=== PATIENT | male | born 2000 | race Caucasian/White ===

== ENCOUNTER 2022-08-09 14:42 | Observation (INO) | payer OTHER ==
[2022-08-09 16:05] LABS: BASO % 0.7 % (0-2.0); EOS % 4.6 % (0-4.5); HEMATOCRIT 42.1 % (35.4-49); HEMOGLOBIN 13.9 GM/dL (11.7-16.9); LYMPH % 16.5 % (8-40); MCH 25.6 pg (25.7-33.7); MCHC 33.1 g/dl (32.0-35.9); MEAN CELL VOLUME 77.3 fl (80-96); MEAN PLT VOLUME 7.4 fl (7.5-11.1); MONO % 8.3 % (3.8-10.2); NEUT % 69.9 % (42.8-82.8); PLATELET COUNT 368 10^3/uL (134-434); RBC 5.44 M/mm3 (4.00-5.60); RDW 13.8 % (11.9-15.9); WHITE BLOOD COUNT 10.9 K/mm3 (4.0-10.0)
[2022-08-09 16:15] LABS: POTASSIUM 4.7 mmol/L (3.5-5.1)
[2022-08-09 16:17] LABS: CALCIUM 9.6 mg/dL (8.5-10.1)
[2022-08-09 16:18] LABS: ALBUMIN 3.8 g/dl (3.4-5.0); MAGNESIUM 1.9 mg/dL (1.8-2.4)
[2022-08-09 16:21] LABS: CREATININE 1.1 mg/dL (0.55-1.3)
[2022-08-09 16:23] LABS: BILIRUBIN,TOTAL 0.9 mg/dL (0.2-1); TOT PROT 7.9 g/dl (6.4-8.2)
[2022-08-09 18:23] LABS: INR 1.33 (0.83-1.09); PROTHROMBIN TIME (PATIENT) 15.4 SEC (9.7-13.0)
[2022-08-09 18:25] LABS: ACTIVATED PTT 38.4 SECONDS (25.2-36.5)
[2022-08-09] MEDS ORDERED: IBUPROFEN 600 MG TABLET (FP) PO ONE ×2 (23:02→23:03)
[2022-08-10] MEDS ORDERED: IBUPROFEN 100 MG/5 ML UNIT DOSE CUPS ONE (02:44)
[2022-08-10 06:00] LABS: EOS % 5.4 % (0-4.5); HEMATOCRIT 41.5 % (35.4-49); HEMOGLOBIN 14.1 GM/dL (11.7-16.9); LYMPH % 16.8 % (8-40); MCH 26.3 pg (25.7-33.7); MEAN CELL VOLUME 77.2 fl (80-96); MEAN PLT VOLUME 7.5 fl (7.5-11.1); MONO % 9.2 % (3.8-10.2); NEUT % 67.6 % (42.8-82.8); PLATELET COUNT 332 10^3/uL (134-434); RBC 5.38 M/mm3 (4.00-5.60); RDW 13.8 % (11.9-15.9); WHITE BLOOD COUNT 8.9 K/mm3 (4.0-10.0)
[2022-08-10 06:30] LABS: CHLORIDE 106 mmol/L (98-107); POTASSIUM 4.6 mmol/L (3.5-5.1); SODIUM 139 mmol/L (136-145)
[2022-08-10 06:31] LABS: CALCIUM 9.7 mg/dL (8.5-10.1)
[2022-08-10 06:32] LABS: ALBUMIN 3.6 g/dl (3.4-5.0); BLOOD UREA NITROGEN 13.6 mg/dL (7-18); GLUCOSE,RANDOM 104 mg/dL (74-106); MAGNESIUM 2.2 mg/dL (1.8-2.4)
[2022-08-10 06:33] LABS: ANION GAP 4 MMOL/L (8-16); CO2 30 mmol/L (21-32)
[2022-08-10 06:35] LABS: SGPT/ALT 21 U/L (13-61)
[2022-08-10 06:36] LABS: BILIRUBIN,TOTAL 0.6 mg/dL (0.2-1); CREATININE 0.9 mg/dL (0.55-1.3); SGOT/AST 15 U/L (15-37); TOT PROT 7.6 g/dl (6.4-8.2)
[2022-08-10 06:38] LABS: ALK PHOS 101 U/L (45-117)
[2022-08-10 07:50] VITALS: BMI 24.7
[2022-08-10] MEDS ORDERED: TUBERCULIN PPD 5 TU/0.1ML SYRINGE (IN PATIENT USE ONLY) ID ONE (09:58)
[2022-08-10] MEDS: ENOXAPARIN NA (PORCINE) 40 MG/0.4 ML DISP.SYRIN SQ SCH ×2 (10:17→11:18)
[2022-08-10 11:01] LABS: LDH 172 U/L (87-246)
[2022-08-10] MEDS ORDERED: IBUPROFEN 600 MG TABLET (FP) PO ONE (19:36)
[2022-08-10] MEDS ORDERED: IBUPROFEN 600 MG TABLET (FP) PO PRN (19:36)
[2022-08-11 08:28] LABS: INR 1.27 (0.83-1.09); PROTHROMBIN TIME (PATIENT) 14.7 SEC (9.7-13.0)
[2022-08-11 08:30] LABS: BASO % 0.9 % (0-2.0); EOS % 3.6 % (0-4.5); HEMATOCRIT 42.3 % (35.4-49); HEMOGLOBIN 14.4 GM/dL (11.7-16.9); MCH 26.4 pg (25.7-33.7); MEAN CELL VOLUME 77.5 fl (80-96); MEAN PLT VOLUME 7.8 fl (7.5-11.1); MONO % 9.2 % (3.8-10.2); NEUT % 68.3 % (42.8-82.8); PLATELET COUNT 329 10^3/uL (134-434); RBC 5.46 M/mm3 (4.00-5.60); RDW 13.3 % (11.9-15.9); WHITE BLOOD COUNT 9.6 K/mm3 (4.0-10.0)
[2022-08-11 08:43] LABS: POTASSIUM 4.7 mmol/L (3.5-5.1)
[2022-08-11 08:59] LABS: CALCIUM 9.5 mg/dL (8.5-10.1)
[2022-08-11 09:00] LABS: ALBUMIN 3.6 g/dl (3.4-5.0); BLOOD UREA NITROGEN 12.1 mg/dL (7-18)
[2022-08-11 09:03] LABS: CREATININE 0.9 mg/dL (0.55-1.3)
[2022-08-11 09:05] LABS: BILIRUBIN,TOTAL 0.9 mg/dL (0.2-1); TOT PROT 7.7 g/dl (6.4-8.2)
[2022-08-11] MEDS ORDERED: VALPROATE SODIUM 250 MG/5 ML UNIT DOSE CUP PO SCH (10:00)
[2022-08-11] MEDS ORDERED: ACETAMINOPHEN 325 MG TABLET (FP) PO PRN (10:24)
[2022-08-11] MEDS ORDERED: MIDAZOLAM HCL 2 MG/2 ML SINGLE DOSE VIAL ONE (15:28)
[2022-08-11] MEDS ORDERED: FENTANYL CITRATE/PF 50 MCG/ML VIAL ONE ×2 (15:28→16:10)
[2022-08-11] MEDS: FENTANYL CITRATE/PF 50 MCG/ML VIAL IVPUSH ONE ×6 (15:48→17:15)
[2022-08-11] MEDS ORDERED: MELATONIN 1 MG TABLET PO PRN (17:50)
[2022-08-11] MEDS ORDERED: LIDOCAINE 5% TOPICAL PATCH TP SCH (18:00)
[2022-08-11] MEDS: LIDOCAINE 5% TOPICAL PATCH TP SCH (19:20)
[2022-08-11] MEDS: ACETAMINOPHEN 1000 MG/100 ML BAG IVPB PRN (21:11)
[2022-08-11] MEDS ORDERED: LIDOCAINE PATCH REMOVAL MC SCH (22:00)
[2022-08-12] MEDS: ACETAMINOPHEN 1000 MG/100 ML BAG IVPB PRN (09:25)
[2022-08-12] MEDS: LIDOCAINE 5% TOPICAL PATCH TP SCH (11:15)
[2022-08-12 15:47] VITALS: BP 126/75; PULSE 93; RESP 18; TEMP 98.6
== END 2022-08-12 17:02 | disposition home or self-care (01) ==
LOC: JER 14:42 → JERBED 08-10 03:24 → J8W 08-10 06:53
PROVIDERS: ADMIT Internal Medicine; ATTEND Nurse Practitioner Family
PROC: 3E033NZ Introduction of Analgesics, Hypnotics, Sedatives into Peripheral Vein, Percutaneous Approach (ICD-10-PCS; principal; 2022-08-10)
PROC: 3E0333Z Introduction of Anti-inflammatory into Peripheral Vein, Percutaneous Approach (ICD-10-PCS; 2022-08-10)
DX: J98.59 Other diseases of mediastinum, not elsewhere classified (principal); D72.829 Elevated white blood cell count, unspecified; R91.8 Other nonspecific abnormal finding of lung field; Z29.8 Encounter for other specified prophylactic measures; R07.9 Chest pain, unspecified
CPT/HCPCS: 0241U-QW; 32408; 36415; 71046-TC-FY; 71275-TC; 74178-TC; 76870-TC; 77012-TC; 80053; 82105; 83615; 83735; 84100; 84484; 84702; 85025; 85379; 85610; 85730; 88305-TC; 88341-TC; 88342-TC; 93005; 93010; 94010; 96374; 96375; 96376; 99285-25; G0378; Q9967

== ENCOUNTER 2022-08-27 06:00 | Inpatient (IN) | payer OTHER ==
[2022-08-25 14:48] VITALS: BMI 25.2
[2022-08-27] MEDS ORDERED: KETAMINE HCL 500 MG/10 ML VIAL ONE (13:39)
[2022-08-27] MEDS ORDERED: ROCURONIUM BROMIDE 50 MG/5 ML SYRINGE ONE (13:39)
[2022-08-27] MEDS ORDERED: MIDAZOLAM HCL 2 MG/2 ML SINGLE DOSE VIAL ONE (13:39)
[2022-08-27] MEDS ORDERED: PROPOFOL 20 ML ONE (13:41)
[2022-08-27] MEDS ORDERED: ACETAMINOPHEN INJECTION 100 ML IVPB ONE (13:57)
[2022-08-27] MEDS ORDERED: BUPIVACAINE HCL/PF 0.25% (2.5MG/ML) 10 ML VIAL ONE (14:01)
[2022-08-27] MEDS ORDERED: SUCCINYLCHOLINE CHLORIDE 200 MG/10 ML SYRINGE ONE (14:13)
[2022-08-27] MEDS ORDERED: ceFAZolin SODIUM 1 GM VIAL IVPB ONE (14:30)
[2022-08-27] MEDS ORDERED: ceFAZolin SODIUM 1 GM VIAL ONE ×2 (14:48)
[2022-08-27] MEDS ORDERED: DEXAMETHASONE SOD PHOSPHATE 4 MG/1 ML VIAL ONE (14:56)
[2022-08-27] MEDS ORDERED: KETOROLAC TROMETHAMINE 30 MG/1 ML VIAL ONE (14:56)
[2022-08-27] MEDS ORDERED: ONDANSETRON 4 MG/2 ML VIAL ONE (14:56)
[2022-08-27] MEDS ORDERED: BUPIVACAINE HCL/PF 0.25% (2.5MG/ML) 10 ML VIAL IJ ONE (15:05)
[2022-08-27] MEDS ORDERED: SUGAMMADEX SODIUM 200 MG/2 ML VIAL ONE (15:35)
[2022-08-27] MEDS ORDERED: ONDANSETRON 4 MG/2 ML VIAL IVPUSH PRN (16:44)
[2022-08-27] MEDS ORDERED: HYDROmorphone *PCA* 10MG/50ML DISP.SYRIN PCA SCH (16:45)
[2022-08-27] MEDS ORDERED: LACTATED RINGERS SOLUTION 1,000 ML IV SCH (17:00)
[2022-08-27] MEDS ORDERED: HYDROmorphone *PCA* 10MG/50ML DISP.SYRIN ONE (17:02)
[2022-08-27] MEDS ORDERED: IPRATROPIUM BR 0.02% 0.5 MG/2.5 ML VIAL.NEB. NEB ONE (17:08)
[2022-08-27] MEDS: ACETAMINOPHEN 1000 MG/100 ML BAG IVPB SCH (20:13)
[2022-08-27] MEDS: LACTATED RINGERS SOLUTION 1,000 ML IV SCH (20:21)
[2022-08-27] MEDS: MUPIROCIN 2% TOPICAL OINTMENT FOR DECOLONIZATION NS SCH (21:25)
[2022-08-27] MEDS ORDERED: CHLORHEXIDINE GLUCONATE 4% CLEANSER FOR DECOLONIZATION TP SCH (22:00)
[2022-08-27] MEDS ORDERED: HEPARIN NA (PORCINE) 5,000 UNITS/ML 1ML VIAL SQ SCH (22:00)
[2022-08-27] MEDS ORDERED: GABAPENTIN 300 MG CAPSULE PO SCH (22:00)
[2022-08-27] MEDS: KETOROLAC TROMETHAMINE 15 MG/ML VIAL IVPUSH SCH (23:03)
[2022-08-28] MEDS ORDERED: ONDANSETRON 4 MG/2 ML VIAL IVPUSH ONE (00:30)
[2022-08-28] MEDS: LACTATED RINGERS SOLUTION 1,000 ML IV SCH (02:11)
[2022-08-28] MEDS: ACETAMINOPHEN 1000 MG/100 ML BAG IVPB SCH ×2 (02:11→09:09)
[2022-08-28] MEDS ORDERED: METOCLOPRAMIDE HCL INJECTION 10 MG/2 ML VIAL IVPUSH ONE (02:30)
[2022-08-28] MEDS ORDERED: LACTATED RINGERS SOLUTION 1,000 ML IV SCH (02:33)
[2022-08-28] MEDS: KETOROLAC TROMETHAMINE 15 MG/ML VIAL IVPUSH SCH ×2 (05:10→10:51)
[2022-08-28 06:39] VITALS: TEMP 98.2
[2022-08-28 07:29] LABS: HEMATOCRIT 39.5 % (35.4-49); HEMOGLOBIN 13.2 GM/dL (11.7-16.9); MCH 25.7 pg (25.7-33.7); MCHC 33.4 g/dl (32.0-35.9); MEAN CELL VOLUME 76.8 fl (80-96); MEAN PLT VOLUME 7.5 fl (7.5-11.1); PLATELET COUNT 450 10^3/uL (134-434); RBC 5.14 M/mm3 (4.00-5.60); RDW 13.4 % (11.9-15.9)
[2022-08-28 07:41] LABS: POTASSIUM 4.8 mmol/L (3.5-5.1)
[2022-08-28 07:44] LABS: CALCIUM 9.6 mg/dL (8.5-10.1)
[2022-08-28 07:45] LABS: ALBUMIN 3.2 g/dl (3.4-5.0); BLOOD UREA NITROGEN 7.7 mg/dL (7-18)
[2022-08-28 07:47] LABS: CREATININE 0.7 mg/dL (0.55-1.3)
[2022-08-28 07:49] LABS: BILIRUBIN,TOTAL 0.8 mg/dL (0.2-1); TOT PROT 7.2 g/dl (6.4-8.2)
[2022-08-28] MEDS ORDERED: oxyCODONE HCL 5 MG TABLET PO PRN ×2 (08:56)
[2022-08-28] MEDS: MUPIROCIN 2% TOPICAL OINTMENT FOR DECOLONIZATION NS SCH (09:10)
[2022-08-28] MEDS ORDERED: ENOXAPARIN NA (PORCINE) 40 MG/0.4 ML DISP.SYRIN SQ SCH (10:00)
[2022-08-28] MEDS ORDERED: HEPARIN NA (PORCINE) 5,000 UNITS/ML 1ML VIAL SQ SCH (10:00)
[2022-08-28 15:13] VITALS: BP 137/62; PULSE 82; RESP 27
== END 2022-08-28 15:05 | disposition home or self-care (01) | DRG 680 ==
LOC: J2C 06:00 → JICU 19:08
PROVIDERS: ADMIT Student in an Organized Health Care Education/Training Program; ATTEND Student in an Organized Health Care Education/Training Program
PROC: 0WBC4ZX Excision of Mediastinum, Percutaneous Endoscopic Approach, Diagnostic (ICD-10-PCS; 2022-08-27)
PROC: 0BBC4ZZ Excision of Right Upper Lung Lobe, Percutaneous Endoscopic Approach (ICD-10-PCS; principal; 2022-08-27 14:00)
DX: C81.90 Hodgkin lymphoma, unspecified, unspecified site (principal); J98.59 Other diseases of mediastinum, not elsewhere classified; R91.8 Other nonspecific abnormal finding of lung field; D72.829 Elevated white blood cell count, unspecified
CPT/HCPCS: 36415; 71045-TC-FY; 80053; 85027; 86850; 86900; 86901; 87070; 87075; 87102; 87116; 87205; 87206; 87210; 88307-TC; 88331-TC; 93005; 93010; 94760; C9803-CS; U0003; U0005

== ENCOUNTER 2022-09-10 03:56 | Day surgery (SDC) | payer OTHER ==
[2022-09-08 08:55] VITALS: BMI 24.5
[2022-09-10] MEDS ORDERED: LIDOCAINE HCL 1%, 10 MG/ML (10ML VIAL) MDV ONE ×2 (12:16→13:53)
[2022-09-10] MEDS ORDERED: HEPARIN NA (PORCINE) 5,000 UNITS/ML 1ML VIAL ONE (12:17)
[2022-09-10] MEDS ORDERED: MIDAZOLAM HCL 2 MG/2 ML SINGLE DOSE VIAL ONE (12:49)
[2022-09-10] MEDS ORDERED: PROPOFOL 20 ML ONE ×3 (12:53→14:16)
[2022-09-10] MEDS ORDERED: ceFAZolin SODIUM 1 GM VIAL IVPB ONE (13:33)
[2022-09-10] MEDS ORDERED: ceFAZolin SODIUM 1 GM VIAL ONE (13:36)
[2022-09-10] MEDS ORDERED: DEXAMETHASONE SOD PHOSPHATE 4 MG/1 ML VIAL ONE (13:36)
[2022-09-10] MEDS ORDERED: ONDANSETRON 4 MG/2 ML VIAL ONE (13:36)
[2022-09-10] MEDS ORDERED: LIDOCAINE HCL 1%, 10 MG/ML (20ML VIAL) INF ONE ×2 (13:50)
[2022-09-10] MEDS ORDERED: BUPIVACAINE HCL/PF 0.25% (2.5MG/ML) 10 ML VIAL ONE (13:53)
[2022-09-10] MEDS ORDERED: ONDANSETRON 4 MG/2 ML VIAL IVPUSH PRN (14:41)
[2022-09-10] MEDS ORDERED: PROMETHAZINE HCL 25 MG/1 ML VIAL IVPB PRN (14:41)
[2022-09-10] MEDS ORDERED: oxyCODONE HCL 5 MG TABLET PO PRN (14:41)
[2022-09-10] MEDS ORDERED: LACTATED RINGERS SOLUTION 1,000 ML IV SCH (14:45)
[2022-09-10 17:19] VITALS: RESP 16
[2022-09-10 17:24] VITALS: BP 120/70; PULSE 70; TEMP 98
== END 2022-09-10 16:30 | disposition home or self-care (01) ==
LOC: JASU-SURG 03:56
PROVIDERS: ATTEND Student in an Organized Health Care Education/Training Program
PROC: 05H533Z Insertion of Infusion Device into Right Subclavian Vein, Percutaneous Approach (ICD-10-PCS; 2022-09-10)
PROC: B516ZZA Fluoroscopy of Right Subclavian Vein, Guidance (ICD-10-PCS; 2022-09-10)
PROC: 0JH60WZ Insertion of Totally Implantable Vascular Access Device into Chest Subcutaneous Tissue and Fascia, Open Approach (ICD-10-PCS; principal; 2022-09-10 13:00)
DX: C81.90 Hodgkin lymphoma, unspecified, unspecified site (principal)
CPT/HCPCS: 36561; C1788; 71045-TC-FY; 76000-TC-FY; 94760; J1644

== ENCOUNTER 2022-09-16 08:01 | Day surgery (SDC) | payer OTHER ==
[2022-09-16 09:04] LABS: BASO % 0.6 % (0-2.0); EOS % 3.3 % (0-4.5); HEMATOCRIT 40.8 % (35.4-49); HEMOGLOBIN 12.8 GM/dL (11.7-16.9); LYMPH % 13.5 % (8-40); MCH 24.5 pg (25.7-33.7); MCHC 31.3 g/dl (32.0-35.9); MEAN CELL VOLUME 78.3 fl (80-96); MEAN PLT VOLUME 7.8 fl (7.5-11.1); MONO % 8.5 % (3.8-10.2); NEUT % 74.1 % (42.8-82.8); PLATELET COUNT 400 10^3/uL (134-434); RDW 13.8 % (11.9-15.9); WHITE BLOOD COUNT 13.9 K/mm3 (4.0-10.0)
[2022-09-16 09:21] LABS: POTASSIUM 4.7 mmol/L (3.5-5.1)
[2022-09-16 09:22] LABS: CALCIUM 9.6 mg/dL (8.5-10.1)
[2022-09-16 09:23] LABS: ALBUMIN 3.5 g/dl (3.4-5.0); BLOOD UREA NITROGEN 11.9 mg/dL (7-18)
[2022-09-16 09:26] LABS: BILIRUBIN,DIRECT 0.2 mg/dL (0.0-0.2); CREATININE 0.8 mg/dL (0.55-1.3)
[2022-09-16 09:27] LABS: TOT PROT 7.5 g/dl (6.4-8.2)
[2022-09-16 09:28] LABS: BILIRUBIN,TOTAL 0.8 mg/dL (0.2-1)
[2022-09-16] MEDS ORDERED: SODIUM CHLORIDE 250 ML IV ONE (09:30)
[2022-09-16 09:42] LABS: ERYTHROCYTE SEDIMENTATION RATE 51 mm/hr (0-10)
[2022-09-16] MEDS ORDERED: FOSAPREPITANT DIMEGLUMINE 150 MG in SODIUM CHLORIDE 145 ML IVPB ONE (10:00)
[2022-09-16] MEDS ORDERED: PALONOSETRON HCL 0.25 MG/5 ML VIAL IVPUSH ONE (10:00)
[2022-09-16] MEDS ORDERED: DEXAMETHASONE SODIUM PHOSPHATE 10 MG in SODIUM CHLORIDE 50 ML IVPB ONE (10:00)
[2022-09-16] MEDS ORDERED: ACETAMINOPHEN 325 MG TABLET (FP) PO ONE (10:00)
[2022-09-16] MEDS ORDERED: diphenhydrAMINE HCL 25 MG CAPSULE (FP) PO ONE (10:00)
[2022-09-16] MEDS ORDERED: DOXOrubicin HCL 50 MG/25 ML VIAL IV ONE (10:30)
[2022-09-16] MEDS ORDERED: SODIUM CHLORIDE 500 ML IV ONE (10:30)
[2022-09-16] MEDS ORDERED: BLEOMYCIN SULFATE 15 UNIT VIAL ID ONE (10:30)
[2022-09-16] MEDS ORDERED: BLEOMYCIN SULFATE IVPB ONE (10:45)
[2022-09-16] MEDS ORDERED: SODIUM CHLORIDE IVPB ONE ×2 (10:45→11:00)
[2022-09-16] MEDS ORDERED: VINBLASTINE SULFATE IVPB ONE (11:00)
[2022-09-16] MEDS ORDERED: DEXTROSE 5% IVPB ONE (11:15)
[2022-09-16] MEDS ORDERED: WATER IVPB ONE (11:15)
[2022-09-16] MEDS ORDERED: DACARBAZINE IVPB ONE (11:15)
[2022-09-16 17:52] VITALS: BP 129/61; PULSE 85; RESP 18; TEMP 98.7
[2022-09-16] MEDS ORDERED: PORTA CATH FLUSH 10 ML IVPUSH PRN (17:52)
== END 2022-09-16 15:35 | disposition home or self-care (01) ==
LOC: JONCCHEMO 08:01 → J7W 08:01 → JONCCHEMO 15:35
PROVIDERS: ATTEND Internal Medicine Hematology & Oncology
DX: Z51.11 Encounter for antineoplastic chemotherapy (principal); C81.90 Hodgkin lymphoma, unspecified, unspecified site
CPT/HCPCS: 36415; 80048; 80076; 83615; 84550; 85025; 85651; 96367; 96375; 96411; 96413; J1453; J2469; J9040; J9130

== ENCOUNTER 2022-09-30 07:44 | Day surgery (SDC) | payer OTHER ==
[2022-09-30 08:08] LABS: BASO % 0.8 % (0-2.0); EOS % 2.8 % (0-4.5); HEMATOCRIT 40.9 % (35.4-49); HEMOGLOBIN 13.1 GM/dL (11.7-16.9); LYMPH % 49.9 % (8-40); MCH 25.5 pg (25.7-33.7); MCHC 31.9 g/dl (32.0-35.9); MEAN CELL VOLUME 79.8 fl (80-96); MEAN PLT VOLUME 8.2 fl (7.5-11.1); MONO % 13.9 % (3.8-10.2); NEUT % 32.6 % (42.8-82.8); PLATELET COUNT 289 10^3/uL (134-434); RBC 5.13 M/mm3 (4.00-5.60); RDW 15.3 % (11.9-15.9); WHITE BLOOD COUNT 4.2 K/mm3 (4.0-10.0)
[2022-09-30 08:25] LABS: POTASSIUM 4.2 mmol/L (3.5-5.1)
[2022-09-30 08:27] LABS: BLOOD UREA NITROGEN 9.7 mg/dL (7-18); CALCIUM 9.5 mg/dL (8.5-10.1)
[2022-09-30 08:28] LABS: ALBUMIN 3.7 g/dl (3.4-5.0)
[2022-09-30 08:30] LABS: CREATININE 0.9 mg/dL (0.55-1.3); URIC ACID 3.7 mg/dL (2.6-7.2)
[2022-09-30 08:32] LABS: BILIRUBIN,DIRECT 0.1 mg/dL (0.0-0.2); BILIRUBIN,TOTAL 0.6 mg/dL (0.2-1); TOT PROT 7.2 g/dl (6.4-8.2)
[2022-09-30] MEDS ORDERED: SODIUM CHLORIDE 250 ML IV ONE (09:30)
[2022-09-30] MEDS ORDERED: FOSAPREPITANT DIMEGLUMINE 150 MG in SODIUM CHLORIDE 145 ML IVPB ONE (10:00)
[2022-09-30] MEDS ORDERED: PALONOSETRON HCL 0.25 MG/5 ML VIAL IVPUSH ONE (10:00)
[2022-09-30] MEDS ORDERED: ACETAMINOPHEN 325 MG TABLET (FP) PO ONE (10:00)
[2022-09-30] MEDS ORDERED: DEXAMETHASONE SODIUM PHOSPHATE 10 MG in SODIUM CHLORIDE 50 ML IVPB ONE (10:00)
[2022-09-30] MEDS ORDERED: diphenhydrAMINE HCL 25 MG CAPSULE (FP) PO ONE (10:00)
[2022-09-30] MEDS ORDERED: DOXOrubicin HCL 50 MG/25 ML VIAL IV ONE (10:30)
[2022-09-30] MEDS ORDERED: BLEOMYCIN SULFATE IVPB ONE (10:45)
[2022-09-30] MEDS ORDERED: SODIUM CHLORIDE IVPB ONE ×2 (10:45→11:00)
[2022-09-30] MEDS ORDERED: VINBLASTINE SULFATE IVPB ONE (11:00)
[2022-09-30] MEDS ORDERED: DACARBAZINE IVPB ONE (11:15)
[2022-09-30] MEDS ORDERED: WATER IVPB ONE (11:15)
[2022-09-30] MEDS ORDERED: DEXTROSE 5% IVPB ONE (11:15)
[2022-09-30] MEDS ORDERED: PORTA CATH FLUSH 10 ML IVPUSH PRN (17:04)
[2022-09-30 17:05] VITALS: BP 134/73; PULSE 68; RESP 18; TEMP 98.4
== END 2022-09-30 13:45 | disposition home or self-care (01) ==
LOC: JONCCHEMO 07:44 → J7W 07:45 → JONCCHEMO 13:45
PROVIDERS: ATTEND Internal Medicine Hematology & Oncology
PROC: 3E04305 Introduction of Other Antineoplastic into Central Vein, Percutaneous Approach (ICD-10-PCS; principal; 2022-09-30)
PROC: 3E0437Z Introduction of Electrolytic and Water Balance Substance into Central Vein, Percutaneous Approach (ICD-10-PCS; 2022-09-30)
PROC: 3E043GC Introduction of Other Therapeutic Substance into Central Vein, Percutaneous Approach (ICD-10-PCS; 2022-09-30)
DX: Z51.11 Encounter for antineoplastic chemotherapy (principal); C81.90 Hodgkin lymphoma, unspecified, unspecified site
CPT/HCPCS: 36415; 80048; 80076; 83615; 84550; 85025; 96367; 96375; 96411; 96413; J1453; J2469; J9040; J9130

== ENCOUNTER 2022-10-14 07:45 | Day surgery (SDC) | payer OTHER ==
[2022-10-14 08:32] LABS: BASO % 1.5 % (0-2.0); EOS % 2.1 % (0-4.5); HEMATOCRIT 41.3 % (35.4-49); HEMOGLOBIN 13.4 GM/dL (11.7-16.9); LYMPH % 43.4 % (8-40); MCH 25.5 pg (25.7-33.7); MCHC 32.4 g/dl (32.0-35.9); MEAN CELL VOLUME 78.8 fl (80-96); MEAN PLT VOLUME 7.9 fl (7.5-11.1); MONO % 14.1 % (3.8-10.2); NEUT % 38.9 % (42.8-82.8); PLATELET COUNT 253 10^3/uL (134-434); RBC 5.24 M/mm3 (4.00-5.60); RDW 16.9 % (11.9-15.9); WHITE BLOOD COUNT 3.9 K/mm3 (4.0-10.0)
[2022-10-14 08:59] LABS: POTASSIUM 4.2 mmol/L (3.5-5.1)
[2022-10-14] MEDS ORDERED: SODIUM CHLORIDE 250 ML IV ONE (09:00)
[2022-10-14 09:01] LABS: BLOOD UREA NITROGEN 10.3 mg/dL (7-18); CALCIUM 9.4 mg/dL (8.5-10.1)
[2022-10-14 09:02] LABS: ALBUMIN 3.9 g/dl (3.4-5.0)
[2022-10-14 09:04] LABS: BILIRUBIN,DIRECT 0.2 mg/dL (0.0-0.2); CREATININE 0.9 mg/dL (0.55-1.3)
[2022-10-14 09:05] LABS: URIC ACID 4.9 mg/dL (2.6-7.2)
[2022-10-14 09:06] LABS: BILIRUBIN,TOTAL 0.5 mg/dL (0.2-1); TOT PROT 7.2 g/dl (6.4-8.2)
[2022-10-14] MEDS ORDERED: FOSAPREPITANT DIMEGLUMINE 150 MG in SODIUM CHLORIDE 145 ML IVPB ONE (09:30)
[2022-10-14] MEDS ORDERED: PALONOSETRON HCL 0.25 MG/5 ML VIAL IVPUSH ONE (09:30)
[2022-10-14] MEDS ORDERED: diphenhydrAMINE HCL 25 MG CAPSULE (FP) PO ONE (09:30)
[2022-10-14] MEDS ORDERED: DEXAMETHASONE SODIUM PHOSPHATE 10 MG in SODIUM CHLORIDE 50 ML IVPB ONE (09:30)
[2022-10-14] MEDS ORDERED: ACETAMINOPHEN 325 MG TABLET (FP) PO ONE (09:30)
[2022-10-14 09:39] LABS: ERYTHROCYTE SEDIMENTATION RATE 2 mm/hr (0-10)
[2022-10-14] MEDS ORDERED: DOXOrubicin HCL 50 MG/25 ML VIAL IV ONE (10:00)
[2022-10-14] MEDS ORDERED: SODIUM CHLORIDE IVPB ONE ×2 (10:15→10:45)
[2022-10-14] MEDS ORDERED: BLEOMYCIN SULFATE IVPB ONE (10:15)
[2022-10-14] MEDS ORDERED: VINBLASTINE SULFATE IVPB ONE (10:45)
[2022-10-14] MEDS ORDERED: DACARBAZINE IVPB ONE (11:00)
[2022-10-14] MEDS ORDERED: WATER IVPB ONE (11:00)
[2022-10-14] MEDS ORDERED: DEXTROSE 5% IVPB ONE (11:00)
[2022-10-14 16:25] VITALS: BP 134/77; PULSE 68; RESP 20; TEMP 98
[2022-10-14] MEDS ORDERED: PORTA CATH FLUSH 10 ML IVPUSH PRN (16:25)
== END 2022-10-14 13:50 | disposition home or self-care (01) ==
LOC: JONCCHEMO 07:45 → J7W 07:45 → JONCCHEMO 13:50
PROVIDERS: ATTEND Internal Medicine Hematology & Oncology
PROC: 3E04305 Introduction of Other Antineoplastic into Central Vein, Percutaneous Approach (ICD-10-PCS; principal; 2022-10-14)
PROC: 3E0437Z Introduction of Electrolytic and Water Balance Substance into Central Vein, Percutaneous Approach (ICD-10-PCS; 2022-10-14)
PROC: 3E043GC Introduction of Other Therapeutic Substance into Central Vein, Percutaneous Approach (ICD-10-PCS; 2022-10-14)
DX: Z51.11 Encounter for antineoplastic chemotherapy (principal); C81.90 Hodgkin lymphoma, unspecified, unspecified site
CPT/HCPCS: 36415; 80048; 80076; 83615; 84550; 85025; 85651; 96367; 96375; 96411; 96413; J1453; J2469; J9040; J9130

== ENCOUNTER 2022-10-28 08:05 | Day surgery (SDC) | payer OTHER ==
[2022-10-28 08:39] LABS: BASO % 0.8 % (0-2.0); EOS % 2.1 % (0-4.5); HEMATOCRIT 41.9 % (35.4-49); LYMPH % 37.9 % (8-40); MCH 26.5 pg (25.7-33.7); MCHC 33.3 g/dl (32.0-35.9); MEAN CELL VOLUME 79.7 fl (80-96); MEAN PLT VOLUME 7.5 fl (7.5-11.1); MONO % 13.4 % (3.8-10.2); NEUT % 45.8 % (42.8-82.8); PLATELET COUNT 247 10^3/uL (134-434); RBC 5.26 M/mm3 (4.00-5.60); RDW 17.9 % (11.9-15.9); WHITE BLOOD COUNT 4.2 K/mm3 (4.0-10.0)
[2022-10-28 08:59] LABS: POTASSIUM 4.4 mmol/L (3.5-5.1)
[2022-10-28] MEDS ORDERED: SODIUM CHLORIDE 250 ML IV ONE (09:00)
[2022-10-28 09:01] LABS: ALBUMIN 3.8 g/dl (3.4-5.0); BLOOD UREA NITROGEN 13.2 mg/dL (7-18); CALCIUM 8.7 mg/dL (8.5-10.1)
[2022-10-28 09:04] LABS: BILIRUBIN,DIRECT 0.1 mg/dL (0.0-0.2); URIC ACID 3.7 mg/dL (2.6-7.2)
[2022-10-28 09:05] LABS: CREATININE 0.8 mg/dL (0.55-1.3)
[2022-10-28 09:06] LABS: BILIRUBIN,TOTAL 0.1 mg/dL (0.2-1)
[2022-10-28] MEDS ORDERED: PALONOSETRON HCL 0.25 MG/5 ML VIAL IVPUSH ONE (09:30)
[2022-10-28] MEDS ORDERED: ACETAMINOPHEN 325 MG TABLET (FP) PO ONE (09:30)
[2022-10-28] MEDS ORDERED: FOSAPREPITANT DIMEGLUMINE 150 MG in SODIUM CHLORIDE 145 ML IVPB ONE (09:30)
[2022-10-28] MEDS ORDERED: DEXAMETHASONE SODIUM PHOSPHATE 10 MG in SODIUM CHLORIDE 50 ML IVPB ONE (09:30)
[2022-10-28] MEDS ORDERED: diphenhydrAMINE HCL 25 MG CAPSULE (FP) PO ONE (09:30)
[2022-10-28] MEDS ORDERED: DOXOrubicin HCL 50 MG/25 ML VIAL IV ONE (10:00)
[2022-10-28] MEDS ORDERED: SODIUM CHLORIDE IVPB ONE ×2 (10:15→10:45)
[2022-10-28] MEDS ORDERED: BLEOMYCIN SULFATE IVPB ONE (10:15)
[2022-10-28] MEDS ORDERED: VINBLASTINE SULFATE IVPB ONE (10:45)
[2022-10-28] MEDS ORDERED: WATER IVPB ONE (10:50)
[2022-10-28] MEDS ORDERED: DACARBAZINE IVPB ONE (10:50)
[2022-10-28] MEDS ORDERED: DEXTROSE 5% IVPB ONE (10:50)
[2022-10-28 15:06] VITALS: BP 126/74; PULSE 69; RESP 20; TEMP 98.1
[2022-10-28] MEDS ORDERED: PORTA CATH FLUSH 10 ML IVPUSH PRN (15:06)
== END 2022-10-28 13:00 | disposition home or self-care (01) ==
LOC: JONCCHEMO 08:05 → J7W 08:29 → JONCCHEMO 13:00
PROVIDERS: ATTEND Internal Medicine Hematology & Oncology
DX: Z51.11 Encounter for antineoplastic chemotherapy (principal); C81.90 Hodgkin lymphoma, unspecified, unspecified site
CPT/HCPCS: 36415; 80048; 80076; 83615; 84550; 85025; 96367; 96375; 96411; 96413; 96417; J1453; J2469; J9040; J9130

== ENCOUNTER 2022-11-11 08:02 | Day surgery (SDC) | payer OTHER ==
[2022-11-11 08:34] LABS: BASO % 1.1 % (0-2.0); EOS % 3.3 % (0-4.5); HEMATOCRIT 44.6 % (35.4-49); HEMOGLOBIN 14.5 GM/dL (11.7-16.9); LYMPH % 39.2 % (8-40); MCH 26.4 pg (25.7-33.7); MCHC 32.5 g/dl (32.0-35.9); MEAN CELL VOLUME 81.3 fl (80-96); MEAN PLT VOLUME 8.1 fl (7.5-11.1); MONO % 13.6 % (3.8-10.2); NEUT % 42.8 % (42.8-82.8); PLATELET COUNT 263 10^3/uL (134-434); RBC 5.48 M/mm3 (4.00-5.60); RDW 17.5 % (11.9-15.9); WHITE BLOOD COUNT 5.2 K/mm3 (4.0-10.0)
[2022-11-11] MEDS ORDERED: SODIUM CHLORIDE 250 ML IV ONE (09:30)
[2022-11-11 09:44] LABS: ERYTHROCYTE SEDIMENTATION RATE 5 mm/hr (0-10)
[2022-11-11] MEDS ORDERED: PALONOSETRON HCL 0.25 MG/5 ML VIAL IVPUSH ONE (10:00)
[2022-11-11] MEDS ORDERED: FOSAPREPITANT DIMEGLUMINE 150 MG in SODIUM CHLORIDE 145 ML IVPB ONE (10:00)
[2022-11-11] MEDS ORDERED: DEXAMETHASONE SODIUM PHOSPHATE 10 MG in SODIUM CHLORIDE 50 ML IVPB ONE (10:00)
[2022-11-11] MEDS ORDERED: ACETAMINOPHEN 325 MG TABLET (FP) PO ONE (10:00)
[2022-11-11] MEDS ORDERED: diphenhydrAMINE HCL 25 MG CAPSULE (FP) PO ONE (10:00)
[2022-11-11 10:15] LABS: ALBUMIN 3.8 g/dl (3.4-5.0); CALCIUM 9.4 mg/dL (8.5-10.1)
[2022-11-11 10:16] LABS: BLOOD UREA NITROGEN 7.7 mg/dL (7-18)
[2022-11-11 10:18] LABS: BILIRUBIN,DIRECT 0.1 mg/dL (0.0-0.2); CREATININE 0.9 mg/dL (0.55-1.3); URIC ACID 3.8 mg/dL (2.6-7.2)
[2022-11-11 10:20] LABS: BILIRUBIN,TOTAL 0.4 mg/dL (0.2-1); TOT PROT 7.2 g/dl (6.4-8.2)
[2022-11-11] MEDS ORDERED: DOXOrubicin HCL 50 MG/25 ML VIAL IV ONE (10:30)
[2022-11-11] MEDS ORDERED: SODIUM CHLORIDE IVPB ONE ×2 (11:00→11:15)
[2022-11-11] MEDS ORDERED: BLEOMYCIN SULFATE IVPB ONE (11:00)
[2022-11-11] MEDS ORDERED: VINBLASTINE SULFATE IVPB ONE (11:15)
[2022-11-11] MEDS ORDERED: DEXTROSE 5% IVPB ONE (11:30)
[2022-11-11] MEDS ORDERED: WATER IVPB ONE (11:30)
[2022-11-11] MEDS ORDERED: DACARBAZINE IVPB ONE (11:30)
[2022-11-11 15:08] VITALS: BP 120/72; PULSE 75; RESP 18; TEMP 98
[2022-11-11] MEDS ORDERED: PORTA CATH FLUSH 10 ML IVPUSH PRN (15:08)
== END 2022-11-11 13:20 | disposition home or self-care (01) ==
LOC: JONCCHEMO 08:02 → J7W 08:03 → JONCCHEMO 13:20
PROVIDERS: ATTEND Internal Medicine Hematology & Oncology
DX: Z51.11 Encounter for antineoplastic chemotherapy (principal); C81.90 Hodgkin lymphoma, unspecified, unspecified site
CPT/HCPCS: 36415; 80048; 80076; 83615; 84550; 85025; 85651; 96367; 96375; 96411; 96413; J1453; J2469; J9040; J9130

== ENCOUNTER 2022-11-25 08:15 | Day surgery (SDC) | payer OTHER ==
[2022-11-25 08:46] LABS: BASO % 0.8 % (0-2.0); EOS % 1.8 % (0-4.5); HEMATOCRIT 43.3 % (35.4-49); HEMOGLOBIN 14.6 GM/dL (11.7-16.9); LYMPH % 42.1 % (8-40); MCH 27.3 pg (25.7-33.7); MCHC 33.8 g/dl (32.0-35.9); MEAN CELL VOLUME 80.6 fl (80-96); MEAN PLT VOLUME 7.9 fl (7.5-11.1); MONO % 11.2 % (3.8-10.2); NEUT % 44.1 % (42.8-82.8); PLATELET COUNT 255 10^3/uL (134-434); RBC 5.37 M/mm3 (4.00-5.60); RDW 17.1 % (11.9-15.9); WHITE BLOOD COUNT 4.7 K/mm3 (4.0-10.0)
[2022-11-25 09:30] LABS: POTASSIUM 4.1 mmol/L (3.5-5.1)
[2022-11-25] MEDS ORDERED: SODIUM CHLORIDE 250 ML IV ONE (09:30)
[2022-11-25 09:43] LABS: ALBUMIN 3.8 g/dl (3.4-5.0)
[2022-11-25] MEDS ORDERED: DEXAMETHASONE SODIUM PHOSPHATE 10 MG in SODIUM CHLORIDE 50 ML IVPB ONE (10:00)
[2022-11-25] MEDS ORDERED: diphenhydrAMINE HCL 25 MG CAPSULE (FP) PO ONE (10:00)
[2022-11-25] MEDS ORDERED: FOSAPREPITANT DIMEGLUMINE 150 MG in SODIUM CHLORIDE 145 ML IVPB ONE (10:00)
[2022-11-25] MEDS ORDERED: ACETAMINOPHEN 325 MG TABLET (FP) PO ONE (10:00)
[2022-11-25] MEDS ORDERED: PALONOSETRON HCL 0.25 MG/5 ML VIAL IVPUSH ONE (10:00)
[2022-11-25 10:07] LABS: BILIRUBIN,DIRECT 0.1 mg/dL (0.0-0.2)
[2022-11-25 10:10] LABS: BILIRUBIN,TOTAL 0.6 mg/dL (0.2-1); BLOOD UREA NITROGEN 14.1 mg/dL (7-18); CREATININE 1.1 mg/dL (0.55-1.3)
[2022-11-25] MEDS ORDERED: DOXOrubicin HCL 50 MG/25 ML VIAL IV ONE (10:30)
[2022-11-25] MEDS ORDERED: BLEOMYCIN SULFATE IVPB ONE (10:45)
[2022-11-25] MEDS ORDERED: SODIUM CHLORIDE IVPB ONE ×2 (10:45→11:00)
[2022-11-25] MEDS ORDERED: VINBLASTINE SULFATE IVPB ONE (11:00)
[2022-11-25] MEDS ORDERED: WATER IVPB ONE (11:15)
[2022-11-25] MEDS ORDERED: DACARBAZINE IVPB ONE (11:15)
[2022-11-25] MEDS ORDERED: DEXTROSE 5% IVPB ONE (11:15)
[2022-11-25 14:32] VITALS: RESP 18; TEMP 97.6
[2022-11-25 14:52] VITALS: BP 125/83; PULSE 87
[2022-11-25] MEDS ORDERED: PORTA CATH FLUSH 10 ML IVPUSH PRN (14:52)
== END 2022-11-25 13:45 | disposition home or self-care (01) ==
LOC: JONCCHEMO 08:15 → J7W 08:16 → JONCCHEMO 13:45
PROVIDERS: ATTEND Internal Medicine Hematology & Oncology
DX: Z51.11 Encounter for antineoplastic chemotherapy (principal); C81.90 Hodgkin lymphoma, unspecified, unspecified site
CPT/HCPCS: 36415; 80048; 80076; 83615; 84550; 85025; 96367; 96375; 96411; 96413; J1453; J2469; J9040; J9130

== ENCOUNTER 2022-12-08 08:23 | Day surgery (SDC) | payer OTHER ==
[2022-12-08] MEDS ORDERED: SODIUM CHLORIDE 250 ML IV ONE (09:00)
[2022-12-08 09:13] LABS: BASO % 0.7 % (0-2.0); EOS % 1.8 % (0-4.5); HEMATOCRIT 43.2 % (35.4-49); LYMPH % 32.4 % (8-40); MCH 26.8 pg (25.7-33.7); MCHC 32.3 g/dl (32.0-35.9); MEAN CELL VOLUME 82.9 fl (80-96); MEAN PLT VOLUME 8.2 fl (7.5-11.1); MONO % 13.6 % (3.8-10.2); NEUT % 51.5 % (42.8-82.8); PLATELET COUNT 241 10^3/uL (134-434); RBC 5.21 M/mm3 (4.00-5.60); RDW 16.7 % (11.9-15.9); WHITE BLOOD COUNT 4.6 K/mm3 (4.0-10.0)
[2022-12-08] MEDS ORDERED: DEXAMETHASONE SODIUM PHOSPHATE 10 MG in SODIUM CHLORIDE 50 ML IVPB ONE (09:30)
[2022-12-08] MEDS ORDERED: PALONOSETRON HCL 0.25 MG/5 ML VIAL IVPUSH ONE (09:30)
[2022-12-08] MEDS ORDERED: FOSAPREPITANT DIMEGLUMINE 150 MG in SODIUM CHLORIDE 145 ML IVPB ONE (09:30)
[2022-12-08] MEDS ORDERED: ACETAMINOPHEN 325 MG TABLET (FP) PO ONE (09:30)
[2022-12-08] MEDS ORDERED: diphenhydrAMINE HCL 25 MG CAPSULE (FP) PO ONE (09:30)
[2022-12-08 09:45] LABS: CALCIUM 9.1 mg/dL (8.5-10.1)
[2022-12-08 09:46] LABS: ALBUMIN 3.8 g/dl (3.4-5.0); BLOOD UREA NITROGEN 10.6 mg/dL (7-18)
[2022-12-08 09:48] LABS: BILIRUBIN,DIRECT 0.1 mg/dL (0.0-0.2)
[2022-12-08 09:49] LABS: CREATININE 0.9 mg/dL (0.55-1.3); URIC ACID 5.2 mg/dL (2.6-7.2)
[2022-12-08 09:51] LABS: BILIRUBIN,TOTAL 0.5 mg/dL (0.2-1)
[2022-12-08] MEDS ORDERED: DOXOrubicin HCL 50 MG/25 ML VIAL IV ONE (10:00)
[2022-12-08 10:10] LABS: ERYTHROCYTE SEDIMENTATION RATE 5 mm/hr (0-10)
[2022-12-08] MEDS ORDERED: BLEOMYCIN SULFATE IVPB ONE (10:15)
[2022-12-08] MEDS ORDERED: SODIUM CHLORIDE IVPB ONE ×2 (10:15→10:45)
[2022-12-08] MEDS ORDERED: VINBLASTINE SULFATE IVPB ONE (10:45)
[2022-12-08] MEDS ORDERED: WATER IVPB ONE (11:00)
[2022-12-08] MEDS ORDERED: DACARBAZINE IVPB ONE (11:00)
[2022-12-08] MEDS ORDERED: DEXTROSE 5% IVPB ONE (11:00)
[2022-12-08 16:55] VITALS: BP 113/74; PULSE 68; RESP 20; TEMP 98.3
[2022-12-08] MEDS ORDERED: PORTA CATH FLUSH 10 ML IVPUSH PRN (16:57)
== END 2022-12-08 14:20 | disposition home or self-care (01) ==
LOC: JONCCHEMO 08:23 → J7W 08:41 → JONCCHEMO 14:05
PROVIDERS: ATTEND Internal Medicine Hematology & Oncology
PROC: 3E04305 Introduction of Other Antineoplastic into Central Vein, Percutaneous Approach (ICD-10-PCS; principal; 2022-12-08)
PROC: 3E04305 Introduction of Other Antineoplastic into Central Vein, Percutaneous Approach (ICD-10-PCS; 2022-12-08)
PROC: 3E043GC Introduction of Other Therapeutic Substance into Central Vein, Percutaneous Approach (ICD-10-PCS; 2022-12-08)
PROC: 3E0437Z Introduction of Electrolytic and Water Balance Substance into Central Vein, Percutaneous Approach (ICD-10-PCS; 2022-12-08)
DX: Z51.11 Encounter for antineoplastic chemotherapy (principal); C81.90 Hodgkin lymphoma, unspecified, unspecified site
CPT/HCPCS: 36415; 80048; 80076; 83615; 84550; 85025; 85651; 96367; 96375; 96409; 96411; 96413; J1453; J2469; J9040; J9130

== ENCOUNTER 2023-01-06 08:06 | Day surgery (SDC) | payer OTHER ==
[2023-01-06] MEDS: SODIUM CHLORIDE 250 ML IV ONE ×2 (08:38→10:17)
[2023-01-06 08:54] LABS: BASO % 0.6 % (0-2.0); EOS % 1.8 % (0-4.5); HEMATOCRIT 43.8 % (35.4-49); HEMOGLOBIN 14.3 GM/dL (11.7-16.9); LYMPH % 31.3 % (8-40); MCH 27.1 pg (25.7-33.7); MCHC 32.7 g/dl (32.0-35.9); MEAN PLT VOLUME 7.4 fl (7.5-11.1); MONO % 12.6 % (3.8-10.2); NEUT % 53.7 % (42.8-82.8); PLATELET COUNT 284 10^3/uL (134-434); RBC 5.28 M/mm3 (4.00-5.60); RDW 15.4 % (11.9-15.9); WHITE BLOOD COUNT 5.5 K/mm3 (4.0-10.0)
[2023-01-06 09:17] LABS: POTASSIUM 3.9 mmol/L (3.5-5.1)
[2023-01-06 09:20] LABS: ALBUMIN 3.7 g/dl (3.4-5.0); CALCIUM 8.9 mg/dL (8.5-10.1)
[2023-01-06 09:22] LABS: BILIRUBIN,DIRECT 0.2 mg/dL (0.0-0.2); URIC ACID 4.5 mg/dL (2.6-7.2)
[2023-01-06 09:24] LABS: BILIRUBIN,TOTAL 0.4 mg/dL (0.2-1)
[2023-01-06 09:36] LABS: ERYTHROCYTE SEDIMENTATION RATE 4 mm/hr (0-10)
[2023-01-06] MEDS ORDERED: ACETAMINOPHEN 325 MG TABLET (FP) PO ONE (10:00)
[2023-01-06] MEDS ORDERED: diphenhydrAMINE HCL 25 MG CAPSULE (FP) PO ONE (10:00)
[2023-01-06] MEDS ORDERED: DEXAMETHASONE SODIUM PHOSPHATE 10 MG in SODIUM CHLORIDE 50 ML IVPB ONE (10:00)
[2023-01-06] MEDS ORDERED: FOSAPREPITANT DIMEGLUMINE 150 MG in SODIUM CHLORIDE 145 ML IVPB ONE (10:00)
[2023-01-06] MEDS ORDERED: PALONOSETRON HCL 0.25 MG/5 ML VIAL IVPUSH ONE (10:00)
[2023-01-06] MEDS ORDERED: DOXOrubicin HCL 50 MG/25 ML VIAL IV ONE (10:30)
[2023-01-06] MEDS ORDERED: BLEOMYCIN SULFATE IVPB ONE (10:45)
[2023-01-06] MEDS ORDERED: SODIUM CHLORIDE IVPB ONE ×2 (10:45→11:00)
[2023-01-06] MEDS ORDERED: VINBLASTINE SULFATE IVPB ONE (11:00)
[2023-01-06] MEDS ORDERED: DACARBAZINE IVPB ONE (11:15)
[2023-01-06] MEDS ORDERED: WATER IVPB ONE (11:15)
[2023-01-06] MEDS ORDERED: DEXTROSE 5% IVPB ONE (11:15)
[2023-01-06 15:28] VITALS: TEMP 97.7
[2023-01-06 15:48] VITALS: BP 128/72; PULSE 68; RESP 20
[2023-01-06] MEDS ORDERED: PORTA CATH FLUSH 10 ML IVPUSH PRN (15:48)
== END 2023-01-06 13:10 | disposition home or self-care (01) ==
LOC: J7W 08:06 → JONCCHEMO 08:06
PROVIDERS: ATTEND Internal Medicine Hematology & Oncology
DX: Z51.11 Encounter for antineoplastic chemotherapy (principal); C81.90 Hodgkin lymphoma, unspecified, unspecified site
CPT/HCPCS: 36415; 80048; 80076; 83615; 84550; 85025; 85651; 96367; 96375; 96411; 96413; J1453; J2469; J9040; J9130

== ENCOUNTER 2023-07-01 05:07 | Day surgery (SDC) | payer OTHER ==
[2023-06-30 12:36] VITALS: BMI 27.4
[2023-07-01] MEDS ORDERED: PROPOFOL 20 ML ONE (12:55)
[2023-07-01] MEDS ORDERED: LIDOCAINE HCL/PF 2% SDV 5ML VIAL ONE (12:55)
[2023-07-01] MEDS ORDERED: FENTANYL CITRATE/PF 50 MCG/ML VIAL ONE ×2 (12:55→12:56)
[2023-07-01] MEDS ORDERED: MIDAZOLAM HCL 2 MG/2 ML SINGLE DOSE VIAL ONE ×2 (12:56→14:24)
[2023-07-01] MEDS ORDERED: LIDOCAINE HCL 1%, 10 MG/ML (20ML VIAL) ONE (12:57)
[2023-07-01] MEDS ORDERED: ONDANSETRON 4 MG/2 ML VIAL IVPUSH PRN (13:29)
[2023-07-01] MEDS ORDERED: ACETAMINOPHEN 500 MG TABLET (FP) PO PRN (13:29)
[2023-07-01] MEDS ORDERED: LACTATED RINGERS SOLUTION 1,000 ML IV SCH (13:30)
[2023-07-01] MEDS ORDERED: DEXAMETHASONE SOD PHOSPHATE 4 MG/1 ML VIAL ONE (14:29)
[2023-07-01] MEDS ORDERED: ONDANSETRON 4 MG/2 ML VIAL ONE (14:29)
[2023-07-01] MEDS: BUPIVACAINE HCL/PF 0.25% (2.5MG/ML) 10 ML VIAL IJ ONE (14:39)
[2023-07-01 16:07] VITALS: RESP 20; TEMP 97.3
[2023-07-01 16:41] VITALS: BP 120/72; PULSE 65
== END 2023-07-01 16:05 | disposition home or self-care (01) ==
LOC: JASU-SURG 05:07
PROVIDERS: ATTEND Student in an Organized Health Care Education/Training Program
PROC: 0JPT0WZ Removal of Totally Implantable Vascular Access Device from Trunk Subcutaneous Tissue and Fascia, Open Approach (ICD-10-PCS; principal; 2023-07-01 14:42)
DX: Z45.2 Encounter for adjustment and management of vascular access device (principal); C81.90 Hodgkin lymphoma, unspecified, unspecified site
CPT/HCPCS: 94760